=== PATIENT | male | born 1970 | race Caucasian/White ===

== ENCOUNTER 2016-12-16 13:29 | Emergency (ER) | payer OTHER ==
[2016-12-16 13:39] VITALS: BP 123/99; PULSE 101; RESP 16; TEMP 98.2; O2SAT 95
[2016-12-16] MEDS ORDERED: LETS SOLN TOPICAL 1 EA SYR TP ONE (14:31)
--- NOTE | 2016-12-16 15:32 | UCPHY ---
H & P Time Seen by Provider: 12/16/16 14:54 Patient Type: New HPI/ROS: This patient was picking up branches in his yd when he sustained a laceration to the right hand from a sharp edge of a tree branch shortly prior to arrival with moderate pain to this wound palmar aspect, with mild bleeding prior to arrival slowed with direct pressure. He reports no other associated symptoms no other injuries. ROS: No numbness. No difficulty moving fingers in the affected hand. 5 point ROS is otherwise negative. Past Medical/Surgical History: Otherwise healthy Smoking Status: Never smoked Physical Exam: Physical Exam Vital signs are normal. General: No acute distress HEENT: Atraumatic. Eyes: Pupils equal and react to light. Extraocular motions are intact. Lungs: No respiratory distress. Cardiac: Brisk capillary refill is intact throughout. Pulses are 2+ and symmetric in the affected extremity. Skin: No rash or pallor. Extremities: Atraumatic normal except for right hand Right hand: Patient has a 2 cm full-thickness laceration to the palmar aspect of the right hand at the hypo thenar eminence-2 cm in length, full-thickness to subcutaneous tissue but no deeper structures are injured on direct examination appreciate no foreign bodies. Neuro: Alert with no sensorimotor deficits in the affected hand.. Constitutional: Initial Vital Signs Temperature (C) 36.8 C 12/16/16 13:34 Heart Rate 101 H 12/16/16 13:34 Respiratory Rate 16 12/16/16 13:34 Blood Pressure 123/99 H 12/16/16 13:34 O2 Sat (%) 95 12/16/16 13:34 O2 Delivery Mode Room Air Allergies/Adverse Reactions: No Known Allergies Allergy (Verified 12/20/12 21:04) Home Medications: Medication Instructions Recorded NO HOME MEDS 09/09/10 MDM/Departure - MDM Procedures: The wound is hand-2 cm full-thickness. The wound was copiously irrigated with saline. The wound was explored for foreign bodies and none were found. The wound was prepped and draped in the normal sterile fashion. The wound was anesthetized using let solution followed by 1% plain lidocaine mixed 50 50 with 0.5% Marcaine, 27 gauge needle-3 mL with good effect. The edges were reapproximated using 4 0 Prolene on a P3 needle-9 running sutures with good hemostasis and cosmesis. The patient tolerated the procedure well. There were no complications. ED Course/Re-evaluation: I counseled the patient regarding suture care. Discussion: Patient with isolated hand laceration without neurovascular compromise or evidence of bony injury. - Depart Disposition: Home, Routine, Self-Care Clinical Impression: Hand laceration Qualifiers: Encounter type: initial encounter Foreign body presence: without foreign body Laterality: right Qualified Code(s): S61.411A - Laceration without foreign body of right hand, initial encounter Condition: Good Instructions: Care For Your Stitches (ED), Laceration (ED) Additional Instructions: Diagnosis: Hand laceration Plan: Keep the wound clean and dry for the next 2 days. Then clean the wound daily with warm soapy water See a clinician in 10-12 days for suture removal. Tylenol and ibuprofen if needed for pain Return sooner to see a clinician if he develops redness, discharge or other concerns for infection Referrals: Michael Zee MD [Primary Care Provider] - As per Instructions - PQRS PQRS Measurement: NA
== END 2016-12-16 15:41 | disposition home or self-care (01) ==
LOC: CED 13:29
PROC: 0HQFXZZ Repair Right Hand Skin, External Approach (ICD-10-PCS; principal; 2016-12-16)
DX: S61.411A Laceration without foreign body of right hand, initial encounter (principal); Y92.017 Garden or yard in single-family (private) house as the place of occurrence of the external cause; W45.8XXA Other foreign body or object entering through skin, initial encounter; Y93.H2 Activity, gardening and landscaping; Y99.8 Other external cause status
CPT/HCPCS: 12002-PO; 99203-PO; G0463-PO